=== PATIENT | male | born 1980 | race Caucasian/White ===

== ENCOUNTER 2022-02-15 | Emergency (ER) | payer OTHER, SELFPAY ==
[2022-02-15 00:10] VITALS: BP 125/72; PULSE 88; O2SAT 98
[2022-02-15 00:12] VITALS: BP 125/72; BP 126/73; PULSE 85; PULSE 89; RESP 18; TEMP 37.1; O2SAT 98; O2SAT 99; BMI 22.8
[2022-02-15 00:30] VITALS: BP 119/67; PULSE 83; O2SAT 100
--- NOTE | 2022-02-15 00:49 | PC.NURSE ---
pt had tattoo done in [place], started seeing redness and swelling 3 days ago. went to [facility] and was given antibiotic (keflex). pt tonight c.o increase redness on arm spreading up his arm and rash on his chest. pt had fever of 102 today but has taken tylenol. pt has used neosporin on part of tattoo where blistering is present and has kept telfa bandages on
[2022-02-15] MEDS: TRIMETH/SULFA 160/800 (DS) TABLET 1 TAB PO (00:56)
--- NOTE | 2022-02-15 06:55 | ED.SKABFB ---
HPI - Skin/Abscess/Foreign Bdy General Chief complaint: Skin/Abscess/Foreign Body Stated complaint: Lt. forearm infection spreading to chest Time Seen by Provider: 02/15/22 00:04 Source: patient Mode of arrival: Ambulatory Limitations: no limitations History of Present Illness HPI narrative: 41-year-old male nonsmoker with history of ADHD presents for evaluation of of an infected tattoo. He states he just received a new left forearm tattoo a few days ago in [facility] and within a day or so of flying back he started developing some redness and discomfort. He was seen and evaluated at the walk-in clinic and started on Keflex and given return precautions suggesting he present to the emergency department for worsening symptoms. He is taken 3 doses of the Keflex and states that he has some increased redness and swelling at the proximal edge of his forearm but not extending proximal to the elbow. He has no systemic findings such as fever, chills nor nausea or vomiting. He does have a very fine rash on his chest as well. He denies any sore throat, difficulty swallowing. Related Data Home Medications Medication Instructions Recorded Confirmed dextroamphetamine-amphetamine 10 10 mg PO DAILY 02/13/22 02/13/22 mg tablet (Adderall) Previous Rx's Medication Instructions Recorded cephalexin 500 mg capsule 1,000 mg PO BID cellulitis 10 days 02/13/22 #40 caps sulfamethoxazole 800 1 tab PO BID 10 days #20 tabs 02/15/22 mg-trimethoprim 160 mg tablet (Bactrim DS) Allergies Allergy/AdvReac Type Severity Reaction Status Date / Time No Known Drug Allergies Allergy Unverified 02/13/22 19:06 Review of Systems Review of Systems Narrative: GENERAL: Denies chills, fatigue, malaise, fever, sweats. HEENT: Denies sinus pain, ear pain, sore throat, difficulty swallowing, dizziness. RESPIRATORY: Denies dyspnea, cough, wheezing, hemoptysis, sputum. CARDIOVASCULAR: Denies chest pain, palpitations, orthopnea, edema, GASTROINTESTINAL: Denies nausea, vomiting, abdominal pain, diarrhea, constipation, melena. : Denies dysuria, frequency, incontinence, hematuria, urinary retention. MUSCULOSKELETAL: denies weakness, joint pain, or bony pain SKIN: See HPI NEUROLOGIC: Denies weakness, headache, numbness, change in speech, confusion, seizures, incoordination. PSYCHIATRIC: No concerning psychosocial issues. 12 point review of systems is negative except for those stated above Patient History Social History Smoking Status: Never smoker Smoking Status: Never smoker alcohol intake frequency: 0-2 drinks per day Substance Use Type: does not use Exam Narrative Exam Narrative: GEN: AOx3 and in mild distress EYES: Pupils are equal, round, and reactive to light and accommodation. Extraoccular muscles are intact bilaterally. There is no subconjunctival hemorrhage or exudate. CHEST: Lungs are clear to auscultation bilaterally and free of wheezes, rales, or rhonchi. Heart rate is regular rhythm, there are no murmurs, clicks, rubs, or gallops. There is no chest wall tenderness. ABD: Abdomen is soft and nontender. There is no guarding or rebound. Bowel sounds are normal in all 4 quadrants. There is no mass or organomegaly. EXT: Fresh tattoo on much of the left forearm is slightly more edematous than you might expect, erythematous along outer edge of much of the tattoo with more confluent erythema and swelling in the absence of induration or fluctuance on the forearm just distal to elbow. Full range of motion at the elbow no suggestion septic arthritis SKIN: Warm, pink, and dry. No erythema or rash Initial Vital Signs Initial Vital Signs: Vital Signs Pulse Rate 88 02/15/22 00:10 Blood Pressure 125/72 02/15/22 00:10 Pulse Oximetry 98 02/15/22 00:10 Course Orders Ordered: ED Orders 02/15/22 00:15 Wound Culture and Gram Stain Stat Discontinued Medications Trimethoprim/Sulfamethoxazole (Trimeth/Sulfa 160/800 (Ds) Tablet) 1 tab PO NOW ONE Stop: 02/15/22 00:50 Last Admin: 02/15/22 00:56 Dose: 1 tab Documented By: NR Vital Signs Vital signs: Vital Signs - 8 hr 02/15/22 00:12 02/15/22 00:10 02/15/22 00:10 Temperature 98.7 F Pulse Rate 85 88 Respiratory Rate 18 Blood Pressure 125/72 125/72 Pulse Oximetry 98 98 Oxygen Delivery Method Room Air 02/15/22 00:12 02/15/22 00:12 02/15/22 00:30 Temperature Pulse Rate 89 Respiratory Rate Blood Pressure 126/73 119/67 Pulse Oximetry 99 Oxygen Delivery Method 02/15/22 00:30 Temperature Pulse Rate 83 Respiratory Rate Blood Pressure Pulse Oximetry 100 Oxygen Delivery Method MDM - Skin/Abscess/Foreign Bdy MDM Narrative Medical decision making narrative: Patient with reassuring history and physical exam and signs of infection of a newly obtained tattoo. He had been on Keflex for the past few days and does have a slight worsening of symptoms. There is no induration or fluctuance. Patient is not septic and shows no signs of lymphangitis. Patient encouraged to stay on Keflex and Bactrim added for MRSA coverage. Patient given return precautions and questions answered to his apparent satisfaction Discharge Plan Departure Patient Disposition: Home Clinical Impression: Cellulitis Instructions: DI for Cellulitis -- Adult Activity Restrictions/Additional Instructions: *You have been diagnosed with [left forearm tattoo infection] *What to do: *Please continue to take your regular medications as directed. [ x] New medication prescriptions sent to your pharmacy: [[facility]] [ ] New medication written as a paper prescription [ ] No new medications given *Please follow up with your primary care provider in 2-3 days, call for an appointment. Let them know you were seen in the Emergency Department and that we ask that you be seen in follow up. We will electronically transmit a record of today's note if your PCP is in our system *Return to Emergency Department if you should have any new, worsening or concerning symptoms Prescriptions: New sulfamethoxazole-trimethoprim [Bactrim DS] 800-160 mg tablet 1 tab PO BID 10 Days Qty: 20 0RF No Action dextroamphetamine-amphetamine [Adderall] 10 mg tablet 10 mg PO DAILY cephalexin 500 mg capsule 1,000 mg PO BID 10 Days Qty: 40 0RF Referrals: Miscellaneous,Doctor, MD [Primary Care Provider] - Visit Report Forms: Patient Portal/API
== END 2022-02-15 01:06 | disposition home or self-care (01) ==
PROVIDERS: Emergency Provider Emergency Medicine
DX: L03.114 Cellulitis of left upper limb (principal)
CPT/HCPCS: 87070; 87075; 87077; 87186; 87205; 99283

== ENCOUNTER 2022-07-30 15:16 | Emergency (ER) | payer OTHER, SELFPAY ==
[2022-07-30 15:43] VITALS: BP 148/84; PULSE 90; RESP 18; TEMP 36.9; O2SAT 100; BMI 22.8
--- NOTE | 2022-07-30 20:49 | ED_ITS ---
HPI - Wound/Laceration General Chief Complaint: Wound/Laceration Stated Complaint: Lt. elbow/forearm infection Time Seen by Provider: 07/30/22 20:48 Source: patient Mode of arrival: Family Vehicle History of Present Illness HPI narrative: 41-year-old male nonsmoker with no significant chronic medical history presents for evaluation of a few small regions on his left forearm with scabbing and concern for infection. He recently had work done on his forearm tattoo and some of the regions are more tender and do not appear to be healing quite as well. He had been seen and evaluated by myself a few months ago after more tattoo work in which she had unfortunately developed cellulitis and he is concerned that perhaps this is happening again. He states that it is much less significant this time around. He has no systemic complaints such as fever, chills nor nausea or vomiting. He denies any trauma or injury. He has no chest pain, shortness of breath or cough. Related Data Home Medications Medication Instructions Recorded Confirmed dextroamphetamine-amphetamine 10 10 mg PO DAILY 02/13/22 02/13/22 mg tablet (Adderall) Previous Rx's Medication Instructions Recorded doxycycline hyclate 100 mg tablet 100 mg PO BID #20 tabs 07/30/22 Allergies Allergy/AdvReac Type Severity Reaction Status Date / Time No Known Drug Allergies Allergy Verified 07/30/22 15:46 Review of Systems Review of Systems Narrative: GENERAL: Denies chills, fatigue, malaise, fever, sweats. HEENT: Denies sinus pain, ear pain, sore throat, difficulty swallowing, dizziness. RESPIRATORY: Denies dyspnea, cough, wheezing, hemoptysis, sputum. CARDIOVASCULAR: Denies chest pain, palpitations, orthopnea, edema, GASTROINTESTINAL: Denies nausea, vomiting, abdominal pain, diarrhea, constipation, melena. : Denies dysuria, frequency, incontinence, hematuria, urinary retention. MUSCULOSKELETAL: denies weakness, joint pain, or bony pain SKIN: See HPI NEUROLOGIC: Denies weakness, headache, numbness, change in speech, confusion, seizures, incoordination. PSYCHIATRIC: No concerning psychosocial issues. 12 point review of systems is negative except for those stated above Patient History Social History Smoking Status: Never smoker Smoking Status: Never smoker alcohol intake frequency: 0-2 drinks per day Substance Use Type: does not use Exam Narrative Exam Narrative: GEN: AOx3 and in mild distress EYES: Pupils are equal, round, and reactive to light and accommodation. Extraoccular muscles are intact bilaterally. There is no subconjunctival hemorrhage or exudate. CHEST: Lungs are clear to auscultation bilaterally and free of wheezes, rales, or rhonchi. Heart rate is regular rhythm, there are no murmurs, clicks, rubs, or gallops. There is no chest wall tenderness. ABD: Abdomen is soft and nontender. There is no guarding or rebound. Bowel sounds are normal in all 4 quadrants. There is no mass or organomegaly. EXT: Full painless ROM of all extremities with no loss of sensation or strength. SKIN: Left forearm with some evidence of new tattoo ink. A few small regions in newly tattooed skin have some dried skin and what appears to be small scabs. There is no erythema or swelling. There is no involvement of skin that has not been recently tattooed. There is certainly no circumferential involvement nor, fluctuance or induration. Initial Vital Signs Initial Vital Signs: Vital Signs Temperature 98.4 F 07/30/22 15:43 Pulse Rate 90 07/30/22 15:43 Respiratory Rate 18 07/30/22 15:43 Blood Pressure 148/84 H 07/30/22 15:43 Pulse Oximetry 100 07/30/22 15:43 Oxygen Delivery Method 07/30/22 15:43 Course Vital Signs Vital signs: Vital Signs - 8 hr 07/30/22 15:43 Temperature 98.4 F Pulse Rate 90 Respiratory Rate 18 Blood Pressure 148/84 H Pulse Oximetry 100 Oxygen Delivery Method Room Air MDM - Wound/Laceration MDM Narrative Medical decision making narrative: CC: 41-year-old male with some tender skin in a region of a new tattoo and concern over the possibility of a 2nd episode Of infection Complicating co-morbidities: None known Data collected from: Patient Medical records reviewed: Prior visit for similar Differential considered, but not limited to: Cellulitis, tattoo reaction, scabbing as part of routine healing versus other Exam documented above, pertinent findings include: No significant swelling, redness or warmth, no drainage, fluctuance or induration, few small regions of scabbing Discussion: Patient with prior trouble with infected tattoos presents for evaluation of some small abnormal regions of skin in areas new ink. We did discuss the possibility of infection but the appearances more consistent with scabs, perhaps from deep, aggressive tattooing. Certainly no indication of abs cess or drainage. Given lack of obvious signs of infection we discussed the concept of watchful waiting for the next day or 2 but I did write him for a prescription in the event his symptoms worsened. Disposition: see below, along with detailed discharge instructions that have been reviewed with patient as well as indications for ED re-evaluation and additional outpatient follow up Discharge Plan Departure Patient Disposition: Home Clinical Impression: Skin lesion of left arm, History of tattoo Instructions: DI for Cellulitis -- Adult Activity Restrictions/Additional Instructions: *You have been diagnosed with [left forearm skin reaction, more likely a consequence of reaction to the ink or the process of tattooing in generalized opposed to infection. As we discussed it would seem reasonable to employed the process of watchful waiting for 24-48 hours, if symptoms improve please do not fill the antibiotic I have given, however as we discussed if things worsen, you have swelling, redness or develop fever please get the antibiotic filled and take as directed] *What to do: *Please continue to take your regular medications as directed. [ ] New medication prescriptions sent to your pharmacy: [ ] [x ] New medication written as a paper prescription [ ] No new medications given *Please follow up with your primary care provider in 2-3 days, call for an appointment. Let them know you were seen in the Emergency Department and that we ask that you be seen in follow up. We will electronically transmit a record of today's note if your PCP is in our system *If you do not have a primary care provider please contact the [facility] Resource line at [phone]. They will ask some questions about your medical history and help get you set up with a doctor in the community. *Return to Emergency Department if you should have any new, worsening or concerning symptoms, such as [fever greater than 101 F, shaking chills, worsening pain, persistent vomiting or other bothersome symptoms] Prescriptions: New doxycycline hyclate 100 mg tablet 100 mg PO BID Qty: 20 0RF No Action dextroamphetamine-amphetamine [Adderall] 10 mg tablet 10 mg PO DAILY Referrals: Miscellaneous,Doctor, [Primary Care Provider] - Stand Alone Forms: Patient Portal/API
[2022-07-30 21:07] VITALS: BP 151/94; PULSE 89; RESP 20; O2SAT 98
== END 2022-07-30 21:09 | disposition home or self-care (01) ==
PROVIDERS: Emergency Provider Emergency Medicine
DX: L98.9 Disorder of the skin and subcutaneous tissue, unspecified (principal); L81.8 Other specified disorders of pigmentation
CPT/HCPCS: 99281

== ENCOUNTER → 2022-08-03 14:00 | Outpatient (CLI) | payer OTHER, SELFPAY ==
[2022-08-03 15:02] LABS: Influenza A - CEPHEID Flu A NEGATIVE (NEGATIVE); Influenza B - CEPHEID Flu B NEGATIVE (NEGATIVE); Respiratory Syncytial Virus Negative (Negative)
[2022-08-03 15:08] LABS: COVID-19 CEPHEID 4-PLEX PCR Negative (Negative)
== END ==
PROVIDERS: Visit Provider Nurse Practitioner Family
DX: H92.09 Otalgia, unspecified ear (principal); J34.89 Other specified disorders of nose and nasal sinuses; R53.83 Other fatigue; R68.83 Chills (without fever); J02.9 Acute pharyngitis, unspecified
CPT/HCPCS: 0241U; 87070; 87147